=== PATIENT | female | born 1950 | race Caucasian/White ===

== ENCOUNTER 2023-01-07 08:00 | Outpatient (CLI) | payer MEDICARE, OTHER ==
--- NOTE | 2023-01-07 11:05 | XRAY Report ---
PROCEDURE: Knee 4 View LT INDICATIONS: LEFT KNEE PAIN TECHNIQUE: 4 views of the left knee(s) were acquired. COMPARISON: None. FINDINGS: Bones: No fractures or dislocations. No suspicious bony lesions. Mild to moderate tricompartmenta l osteoarthritis in left knee is seen most notably in medial femoral tibial compartment. Soft tissues: No knee joint effusion. No suspicious soft tissue calcifications or masses. IMPRESSION: No acute bony abnormality. 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 Reviewed by: Phani Avila MD on 01/07/2023 11:04 AM PDT Approved by: Phani Avila MD on 01/07/2023 11:04 AM PDT Station ID: [id number]
== END 2023-01-07 23:59 | disposition home or self-care (01) ==
LOC: DI.WOS 08:00
PROVIDERS: ATTEND Physician Assistant Surgical
DX: M17.12 Unilateral primary osteoarthritis, left knee (principal)